=== PATIENT | male | born 1985 | race Caucasian/White ===

== ENCOUNTER → 2017-05-28 | Day surgery (SDC) | payer OTHER ==
[~2017-05-28] MED LIST: HYDROCODON-ACE1 EAC7 PO; NEURONTIN300 MG PO; TUMS200 MG PO
--- NOTE | ~2017-05-28 | OR ---
Unit #: [id number] #: [id number] Patient: ROMELIA PILLAI [id number] [address] [place], [place] [address] [id number] O MR#: [id number] NAME: ROMELIA PILLAI ROOM: Date of Procedure: 05/28/2017 Admission Date: 05/28/2017 Surgeon: Andrea Kong M.D. : 1985 Attending Physician: Andrea Kong M.D. Primary Care Physician: Roosevelt Martinez M.D. OPERATIVE REPORT PREOPERATIVE DIAGNOSES Lumbar disk herniation and radiculopathy. POSTOPERATIVE DIAGNOSES Lumbar disk herniation and radiculopathy. PROCEDURE PERFORMED Transforaminal epidural steroid injection with intravenous sedation and fluoroscopic guidance for needle localization. INDICATIONS FOR PROCEDURE The patient is a 31-year-old male with primary issue of right lower extremity pain. He has been treated in the past for right-sided disk extrusion with epidural steroids that was not very helpful via translaminar approach. He had trial of facet injections at the left at the L3-L4 and L4-L5 levels to the diagnosis of left sided facet synovial cyst that did help settle his left-sided pain, but not helped the right leg pain. Plan is for trial of transforaminal injection to see if that better, we will address this right-sided radicular pain associated and it was felt to be the etiology of the right-sided L3-L4 disk extrusion. DESCRIPTION OF PROCEDURE The patient was placed in a prone position. Standard monitors were applied. 2 mg of Versed were given for sedation and anxiolysis, which were adequate. Vital signs remained stable. Sterile prep and drape then of the right side of the lumbar area was performed. The skin then to the right of midline at the L3-L4 level was localized with 1% lidocaine. A long 22-gauge Quincke point spinal needle was then advanced with biplanar fluoroscopic guidance to bring the needle tip to within the right L3-L4 neural foramina. After confirming proper positioning with fluoroscopy and radiographic contrast, a dose of 80 mg of Depo-Medrol and 1 mL of 0.25% bupivacaine were deposited. The patient tolerated the procedure otherwise well and was discharged to the recovery room in stable condition. Dictated by... Guera Silverman/marcus Unit #: [id number] #: [id number] Patient: ROMELIA PILLAI TD: 05/28/2017 17:10 JOB #: [id number] OPERATIVE REPORT Page 1 of 1 X Andrea Kong MD X PROCEDURE OPERATIVE NOTE
== END | disposition home or self-care (01) ==
LOC: CCSC 09:29
DX: M51.16 Intervertebral disc disorders with radiculopathy, lumbar region (principal); K21.9 Gastro-esophageal reflux disease without esophagitis; Z79.891 Long term (current) use of opiate analgesic; Z79.899 Other long term (current) drug therapy
CPT/HCPCS: J1040; J2250